=== PATIENT | male | born 1955 | race Caucasian/White ===

== ENCOUNTER 2017-07-01 01:48 | Observation (INO) | payer MEDICARE ==
[~2017-07-01] VITALS: Ht 167.6 cm; Wt 105.7 kg
[~2017-07-01 01:48] MED LIST: ASPIR-TRIN325 MG PO; ATIVAN0.5 MG PO; BACLOFEN10 MG PO; CARAFATE1 GM PO; CELEXA20 MG PO; FENTANYL1 EACH TD; FERROUS SULFAT325 MG PO; FOLIC ACID1 MG PO; HEMOCYTE PLUS1 EACH PO; HUMALOG100 UNIT/1 SQ; HUMALOG100 UNIT/3; IMDUR60 MG PO; ISOSORBIDE MONO60 MG PO; LASIX40 MG PO; LEVOTHYROXINE100 MCG PO; METOPROLOL TART25 MG PO; MUPIROCIN22 GM TOP; OMEPRAZOLE20 M1 PO; PLAVIX75 MG PO; RITALIN10 MG PO; SIMVASTATIN40 MG PO; STRATTERA80 MG PO; TRAZODONE HCL100 MG PO; ZETIA10 MG PO
[2017-07-01] MEDS ORDERED: DEXTROSE 5%/0.45% SOD CHL 1,000 ML IV ONE (02:00)
[2017-07-01 02:06] LABS: BASOPHILS # (AUTO) 0.1 (0.0-0.1); BASOPHILS % 0.5 % (0.0-1.0); EOSINOPHILS # (AUTO) 0.5 (0.0-0.4); EOSINOPHILS % 4.6 % (0.0-6.0); HEMATOCRIT 39.5 % (38.2-49.6); HEMOGLOBIN 13.3 g/dL (14.0-18.0); LYMPHOCYTES % 9.8 % (18.0-39.1); MEAN CORPUSCULAR HEMOGLOBIN 30.4 pg (28-32); MEAN CORPUSCULAR HGB CONC 33.7 g/dL (31-35); MEAN CORPUSCULAR VOLUME 90.2 fL (81-99); MONOCYTES % 9.9 % (4.4-11.3); NEUTROPHILS # (AUTO) 7.2 (2.1-6.9); NEUTROPHILS % 74.5 % (38.7-80.0); PLATELET COUNT 236 x10e3/uL (140-360); RED BLOOD COUNT 4.38 x10e6/uL (4.3-5.7); RED CELL DISTRIBUTION WIDTH 12.8 % (11.7-14.4)
[2017-07-01] MEDS ORDERED: PAROXETINE HCL20 MG PO (02:18)
[2017-07-01] MEDS ORDERED: LEVEMIR100 UNIT/1 SC ×2 (02:18)
[2017-07-01] MEDS ORDERED: LIPITOR20 MG PO (02:18)
[2017-07-01 02:27] LABS: ALANINE AMINOTRANSFERASE 22 IU/L (0-55); ALBUMIN 3.4 g/dL (3.5-5.0); ALBUMIN/GLOBULIN RATIO 0.9 (0.8-2.0); ALKALINE PHOSPHATASE 105 IU/L (40-150); AMYLASE 37 U/L (25-125); ANION GAP 13.5 mmol/L (8-16); BLOOD UREA NITROGEN 18 mg/dL (7-26); BUN/CREATININE RATIO 19 (6-25); CALCIUM 9.2 mg/dL (8.4-10.2); CARBON DIOXIDE 25 mmol/L (22-29); CHLORIDE 103 mmol/L (98-107); CREATINE KINASE 46 IU/L (30-200); CREATININE, SERUM 0.94 mg/dL (0.72-1.25); EST GLOMERULAR FILTRATION RATE > 60 ML/MIN (60-); GLUCOSE 123 mg/dL (74-118); LIPASE 6 U/L (8-78); POTASSIUM 3.5 mmol/L (3.5-5.1); SODIUM 138 mmol/L (136-145)
[2017-07-01 02:34] LABS: TROPONIN I 0.017 ng/mL (0-0.300)
[2017-07-01] MEDS ORDERED: ACETAMINOPHEN 325 MG TAB PO ONE (03:15)
[2017-07-01 03:20] LABS: BILIRUBIN,URINE NEGATIVE (NEGATIVE); KETONES,URINE NEGATIVE (NEGATIVE); LEUKOCYTE ESTERASE ,URINE NEGATIVE (NEGATIVE); NITRITE,URINE NEGATIVE (NEGATIVE); PROTEIN,URINE DIPSTICK NEGATIVE (NEGATIVE); URINE UROBILINOGEN 0.2 mg/dL (0.2 - 1)
[2017-07-01 03:21] LABS: CLARITY,URINE CLEAR (CLEAR); COLOR,URINE YELLOW (YELLOW)
[2017-07-01 03:29] LABS: BACTERIA,URINE RARE /HPF; EPITHELIAL CELLS,URINE RARE /LPF; MUCUS,URINE FEW (RARE); RBC,URINE 0-5 /HPF (0-5); WBC,URINE (MAN) 0-5 /HPF (0-5)
--- NOTE | 2017-07-01 04:05 | Diagnostic Imaging Report ---
EXAMINATION: Head CT without contrast. HISTORY:Altered mental status, left facial droop. COMPARISON:CT brain from 01/29/2014 and report of MRI brain and MRA head and neck from 01/30/2014 (images of prior MRI brain is not available for comparison at the time of interpretation). TECHNIQUE: Multidetector axial images were obtained from the foramen magnum to the vertex without contrast. The images were reconstructed using brain and bone algorithms. Thin section brain images were reformatted into coronal and sagittal planes. Intravenous contrast: None IMAGE QUALITY: Acceptable. FINDINGS: Skull/scalp: No abnormality Parenchyma: Cortical-based hypodensity in left supramarginal gyrus, angular gyrus, right occipital region, occipital lobe, posterior aspect of left superior temporal gyrus, left parietal deep white matter, left frontal operculum, left inferior frontal gyrus raises concern for possible evolving superimposed acute on chronic vascular insult in left MCA, BELT LINE FEEDER vascular territory and MCA/MARCUS watershed zone. Focal hypodensity in left frontal alcala radiata represents age indeterminate lacunar infarct. Nonspecific bilateral frontoparietal patchy white matter hypodensity are likely related to small vessel ischemic changes. No acute hemorrhage. Arteries: Atherosclerotic calcification in bilateral carotid siphon and V4 segment of the vertebral arteries. Dural sinuses: No abnormal density suggestive of thrombosis. Ventricles: Mild asymmetric prominence of left lateral ventricle represent exvacuodilatation. No hydrocephalus. Extra-axial spaces: No abnormal density. Brain volume: Normal for age. Craniocervical junction: No mass, Chiari malformation, or basilar invagination. Sella: No mass. Paranasal/mastoid sinuses: Mild mucosal thickening in bilateral maxillary and ethmoid sinuses. IMPRESSION: Multifocal cortical-based hypodensity in left MCA, BELT LINE FEEDER vascular territory and MCA/BELT LINE FEEDER watershed zone raises concern for possible evolving superimposed acute on chronic vascular insult. (Suboptimal evaluation due to lack of comparison with prior MRI brain images) if there is clinical concern for acute stroke follow-up with MRI brain without contrast. Age indeterminate lacunar infarct in left frontal alcala radiata. Mild supratentorial white matter microvascular ischemic changes Signed by: Dr. Belia Mcdonough M.D. on 07/01/2017 4:02 AM
--- NOTE | 2017-07-01 04:08 | Diagnostic Imaging Report ---
EXAM: CHEST SINGLE (PORTABLE), AP 1 view DATE: 07/01/2017 1:51 AM Time stamp on exam: 0236 hours INDICATION: Unresponsive, low blood sugar COMPARISON: None FINDINGS: LINES/TUBES: None LUNGS: No consolidations or edema. Simple infrahilar vascular crowding. PLEURA: No effusions or pneumothorax. HEART AND MEDIASTINUM: Normal size and contour. A loop recorder projects over the left chest. BONES AND SOFT TISSUES: No acute findings. Old right-sided rib fractures. IMPRESSION: No acute thoracic abnormality. Signed by: Dr. Mirna Leon M.D. on 07/01/2017 4:04 AM
[2017-07-01] MEDS ORDERED: DEXTROSE 50% SYRINGE 50 ML IV PRN (05:30)
[2017-07-01] MEDS ORDERED: ONDANSETRON HCL INJ 2 MG/ML VIAL IV PRN (05:30)
[2017-07-01] MEDS: LEVOTHYROXINE SODIUM 100 MCG TAB PO SCH (07:30)
[2017-07-01] MEDS: INSULIN REGULAR, HUMAN 100 UNIT/1 ML 3ML VIAL SQ SCH ×2 (08:55→11:30)
[2017-07-01] MEDS: BACLOFEN 10 MG TAB PO SCH ×3 (09:00→20:07)
[2017-07-01 14:07] VITALS: BP 121/76
[2017-07-01 14:22] VITALS: BP 121/76
[2017-07-01] MEDS: METOPROLOL TARTRATE 25 MG TAB PO SCH ×2 (14:22→16:47)
[2017-07-01] MEDS: CLOPIDOGREL BISULFATE 75 MG TAB PO SCH (14:22)
[2017-07-01] MEDS: PAROXETINE HCL 20 MG TAB PO SCH (14:22)
[2017-07-01] MEDS: FUROSEMIDE 40 MG TAB PO SCH (14:22)
[2017-07-01] MEDS: ASPIRIN 325 MG TAB EC PO SCH (14:22)
[2017-07-01 14:42] LABS: FREE T4 (FREE THYROXINE) 0.99 ng/dL (0.8-1.8); THYROID STIMULATING HORMONE 3.712 uIU/mL (0.350-4.940)
[2017-07-01 15:41] VITALS: BP 134/80
[2017-07-01] MEDS: INSULIN LISPRO 100 UNIT/1 ML 3ML VIAL SQ SCH ×2 (16:53→20:08)
--- NOTE | 2017-07-01 19:05 | Consultation ---
DATE OF CONSULTATION: July 01, 2017 ENDOCRINE CONSULTATION This is a patient of Dr. Yannick Wilson. Thank you very much for referring this patient. HISTORY OF PRESENT ILLNESS: This is a 61-year-old white gentleman who is very well known to me from his previous hospital admissions and the followup in my office. Patient is a known case of type 1 diabetes mellitus with multiple complications including severe diabetic sensorimotor neuropathy. Patient is status post coronary artery disease, congestive cardiac failure, and also status post CVA in the past. He takes about 9 units of Levemir at bedtime and Humalog, depending upon the blood sugar, about 4 to 8 with each meal. Patient also has history of hypothyroidism. The patient was doing relatively all right. According to him, his blood sugar was around 140 at suppertime. He took his Levemir at bedtime. He did not take a snack, and he landed up the hospital with altered mental status. Patient also is on other medications including isosorbide, Plavix, metoprolol, Lasix, and Synthroid 0.1 mg once daily. PHYSICAL EXAMINATION: GENERAL: Today the patient is alert, awake, a little bit apprehensive. He is moderately overweight. VITAL SIGNS: His heart rate is around 78. Blood pressure 120/80 mmHg. HEENT: Examination essentially unremarkable. Thyroid is palpable. Clinically he is near euthyroid. CHEST: Bilateral vesicular breathing. No rales heard. CARDIAC: Both 1st and 2nd heart sounds. There is no 3rd or 4th heart sound. Ejection sound grade 2/6. CLINICAL IMPRESSION: 1. Diabetes mellitus type 1. 2. Hypoglycemic episode. 3. Hypertension. 4. Coronary artery disease, status post cerebrovascular accident. PLAN: At this time is to put him on the Humalog insulin sliding scale. Discontinue the Orozco catheter. Will also do a hemoglobin A1c, thyroid function test. Patient may also need a CGMS-1 followup. Thanks for referring this patient. I will be following this patient with you. Job#: [id number] BATSHEVA
[2017-07-01 20:00] VITALS: BP 121/66
[2017-07-01] MEDS ORDERED: ATORVASTATIN 20 MG TAB PO SCH (21:00)
[2017-07-01] MEDS ORDERED: INSULIN DETEMIR 100 UNIT/ML PEN SQ SCH (21:00)
[2017-07-02] VITALS: BP 132/63
[2017-07-02 04:00] VITALS: BP 139/62
[2017-07-02 06:25] LABS: BASOPHILS # (AUTO) 0.1 (0.0-0.1); BASOPHILS % 0.5 % (0.0-1.0); EOSINOPHILS # (AUTO) 0.7 (0.0-0.4); HEMOGLOBIN 13.5 g/dL (14.0-18.0); LYMPHOCYTES # (AUTO) 1.7 (1.0-3.2); LYMPHOCYTES % 17.3 % (18.0-39.1); MEAN CORPUSCULAR HEMOGLOBIN 30.3 pg (28-32); MEAN CORPUSCULAR HGB CONC 33.8 g/dL (31-35); MEAN CORPUSCULAR VOLUME 89.9 fL (81-99); MONOCYTES # (AUTO) 1.3 (0.2-0.8); NEUTROPHILS # (AUTO) 6.2 (2.1-6.9); NEUTROPHILS % 61.5 % (38.7-80.0); PLATELET COUNT 240 x10e3/uL (140-360); RED BLOOD COUNT 4.45 x10e6/uL (4.3-5.7)
[2017-07-02 07:02] LABS: ALANINE AMINOTRANSFERASE 21 IU/L (0-55); ALBUMIN 3.3 g/dL (3.5-5.0); ALBUMIN/GLOBULIN RATIO 0.9 (0.8-2.0); ALKALINE PHOSPHATASE 97 IU/L (40-150); ANION GAP 13.5 mmol/L (8-16); BLOOD UREA NITROGEN 17 mg/dL (7-26); BUN/CREATININE RATIO 17 (6-25); CALCIUM 9.5 mg/dL (8.4-10.2); CARBON DIOXIDE 28 mmol/L (22-29); CHLORIDE 103 mmol/L (98-107); CREATININE, SERUM 0.98 mg/dL (0.72-1.25); EST GLOMERULAR FILTRATION RATE > 60 ML/MIN (60-); GLUCOSE 133 mg/dL (74-118); POTASSIUM 4.5 mmol/L (3.5-5.1); SODIUM 140 mmol/L (136-145)
[2017-07-02] MEDS: INSULIN LISPRO 100 UNIT/1 ML 3ML VIAL SQ SCH ×2 (07:30→12:32)
[2017-07-02 07:52] VITALS: BP 131/67
[2017-07-02] MEDS: LEVOTHYROXINE SODIUM 100 MCG TAB PO SCH (08:59)
[2017-07-02] MEDS: ASPIRIN 325 MG TAB EC PO SCH (08:59)
[2017-07-02] MEDS: CLOPIDOGREL BISULFATE 75 MG TAB PO SCH (09:00)
[2017-07-02] MEDS: METOPROLOL TARTRATE 25 MG TAB PO SCH (09:00)
[2017-07-02] MEDS: FUROSEMIDE 40 MG TAB PO SCH (09:00)
[2017-07-02] MEDS ORDERED: ISOSORBIDE MONONITRATE 30 MG TAB CR PO SCH (09:00)
[2017-07-02] MEDS: PAROXETINE HCL 20 MG TAB PO SCH (09:00)
[2017-07-02] MEDS: BACLOFEN 10 MG TAB PO SCH (09:00)
[2017-07-02 11:48] VITALS: BP 113/62
--- NOTE | 2017-07-02 15:06 | History and Physical ---
PLEASE VERIFY PATIENT IDENTITY. ADT MATCH NOT AVAILABLE. He is a 61-year-old male patient of mine presented to the emergency room with low sugar and patient was also hypothermic. His temperature was 95. HISTORY OF PRESENT ILLNESS: Mr. Tomas Fernandez is an insulin-requiring maturity-onset diabetes mellitus. Patient with multiple comorbidities with previous multiple strokes and lumbar osteomyelitis, abscess in the , chronic back pain, diabetes mellitus, hypertension, depression, obstructive sleep apnea, and hyperlipidemia. He presented to the emergency room. Patient accidentally took morning insulin and did not have a breakfast, anything to eat . Patient was having hypoglycemia with significantly low blood sugars. Patient was also confused and his temperature was also low. Patient has been evaluated in the emergency room and was subsequently admitted. PAST MEDICAL HISTORY: As per history of present illness. Patient has a known medical history of diabetes mellitus, hypertension, hyperlipidemia, multiple strokes, obstructive sleep apnea, and lumbar osteomyelitis and spinal abscess and surgery. PAST SURGICAL HISTORY: Spinal surgery for spinal osteomyelitis infection abscess. SOCIAL HISTORY: Denies smoking. Denies using alcohol. FAMILY HISTORY: Diabetes mellitus, hypertension, and hyperlipidemia. REVIEW OF SYSTEMS: Patient is feeling weak and dizzy. PHYSICAL EXAMINATION GENERAL: He is a middle-aged patient lying in bed, not in any acute distress. VITALS: Temperature 97, pulse rate 68, respiratory rate 20, and blood pressure 110/70. HEENT: Normocephalic and atraumatic. NECK: No JVD or lymphadenopathy. LUNGS: Bilateral equal and fair air entry. No rales, no rhonchi. HEART: S1 and S2 regular. Systolic murmur present. ABDOMEN: Soft. Bowel sounds are present. NEUROLOGIC: No new focal neurological deficit. ADMITTING IMPRESSION/DIAGNOSES 1. Hypoglycemia. 2. Hypothermia. 3. Type 2 diabetes mellitus, patient on insulin. 4. History of coronary artery disease. 5. History of lumbar spinal stenosis. 5. Multiple cerebrovascular accidents. PLAN: Patient will be admitted with the above diagnoses. Will monitor patient's blood sugars and neuro status. Patient's insulin will be held and D5 drips will be given. Will obtain endocrine consultation, Dr. Lake, to adjust the patient's insulin as patient is under the care of endocrine as outpatient. Diabetic education will be given. Job#: [id number] CF
--- NOTE | 2017-07-16 16:29 | Consultation ---
DATE OF CONSULTATION: NO DICTATION, LENGTH 1 SECOND. Job#: [id number]
== END 2017-07-02 14:56 | disposition home or self-care (01) ==
LOC: ER 01:48 → ERHOLD 05:46 → IMCU 13:39
PROVIDERS: ADMIT Internal Medicine; ATTEND Internal Medicine
DX: E10.649 Type 1 diabetes mellitus with hypoglycemia without coma (principal); I10 Essential (primary) hypertension; I25.118 Atherosclerotic heart disease of native coronary artery with other forms of angina pectoris; Z86.73 Personal history of transient ischemic attack (TIA), and cerebral infarction without residual deficits; E10.42 Type 1 diabetes mellitus with diabetic polyneuropathy; Z79.4 Long term (current) use of insulin; E03.9 Hypothyroidism, unspecified; G93.41 Metabolic encephalopathy
CPT/HCPCS: 36415 ×2; 70450; 71010; 80053 ×2; 81001; 82150; 82550; 82553; 82948 ×2; 83036; 83690; 84439; 84443; 84484; 85025 ×2; 97116; 97161; 99284; G0378 ×2; G8978; G8979; G8980

== ENCOUNTER 2017-11-30 16:20 | Observation (INO) | payer MEDICARE ==
[~2017-11-30] VITALS: Ht 167.6 cm; Wt 105.7 kg
[2017-11-30] MEDS: SODIUM CHLORIDE 0.9% 1000ML 1,000 ML IV SCH (03:50)
[~2017-11-30 16:20] MED LIST changes: +LEVEMIR100 UNIT/1 SC; +LIPITOR20 MG PO; +PAROXETINE HCL20 MG PO
--- OUTSIDE RECORDS SUMMARY | 2017-11-30 16:24 | XMS REPORT ---
Author [facility] Address Unknown Phone Unavailable Care Team Providers Care Drywall Mechanic Name Role Phone LOLITA CARTER Unavailable Unavailable Problems This patient has no known problems. Allergies, Adverse Reactions, Alerts This patient has no known allergies or adverse reactions. Medications This patient has no known medications. Results Test Description Test Time Test Comments Text Results Atomic Results Result Comments CT BRAIN WO [facility] [address] [place], [place] [address] Patient Name: SAKSHI GONZALEZ MR #: [id number] : 1955 Age/Sex: 61/M Req #: [id number] Adm Physician: Ordered by: LOLITA CARTER MD Report #: [id number] Location: ER Room/Bed: Procedure: [id number] CT/CT BRAIN WO Exam Date: 07/01/17 Exam Time: 0240 REPORT STATUS: Signed EXAMINATION: Head CT without contrast. HISTORY:Altered mental status, left facial droop. COMPARISON:CT brain from 01/29/2014 and report of MRI brain and MRA head and neck from 2013 (images of prior MRI brain is not available for comparison at the time of interpretation). TECHNIQUE: Multidetector axial images were obtained from the foramen magnum to the vertex without contrast. The images were reconstructed using brain and bone algorithms. Thin section brain images were reformatted into coronal and sagittal planes. Intravenous contrast: None IMAGE QUALITY: Acceptable. FINDINGS: Skull/scalp: No abnormality Parenchyma: Cortical-based hypodensity in left supramarginal gyrus, angular gyrus, right occipital region, occipital lobe, posterior aspect of left superior temporal gyrus, left parietal deep white matter, left frontal operculum, left inferior frontal gyrus raises concern for possible evolving superimposed acute on chronic vascular insult in left MCA, DONATION SPECIALIST vascular territory and MCA/MARCUS watershed zone. Focal hypodensity in left frontal alcala radiata represents age indeterminate lacunar infarct. Nonspecific bilateral frontoparietal patchy white matter hypodensity are likely related to small vessel ischemic changes. No acute hemorrhage. Arteries: Atherosclerotic calcification in bilateral carotid siphon and V4 segment of the vertebral arteries. Dural sinuses: No abnormal density suggestive of thrombosis. Ventricles: Mild asymmetric prominence of left lateral ventricle represent exvacuodilatation. No hydrocephalus. Extra- axial spaces: No abnormal density. Brain volume: Normal for age. Craniocervical junction: No mass, Chiari malformation, or basilar invagination. Sella: No mass. Paranasal/mastoid sinuses: Mild mucosal thickening in bilateral maxillary and ethmoid sinuses. IMPRESSION : Multifocal cortical-based hypodensity in left MCA, DONATION SPECIALIST vascular territory and MCA/DONATION SPECIALIST watershed zone raises concern for possible evolving superimposed acute on chronic vascular insult. (Suboptimal evaluation due to lack of comparison with prior MRI brain images) if there is clinical concern for acute stroke follow-up with MRI brain without contrast. Age indeterminate lacunar infarct in left frontal alcala radiata. Mild supratentorial white matter microvascular ischemic changes Signed by: Dr. Belia Mcdonough M.D. on 07/01/2017 4:02 AM Dictated By: BELIA MCDONOUGH MD 1 Transcribed By: BROOKE on 07/01/17401 COPY TO: LOLITA CARTER MD [facility] (PORTABLE) [place] [id number] Patient Name: SAKSHI GONZALEZ MR #: [id number] : 1955 Age/Sex: 61/M Req #: [id number] Adm Physician: Ordered by: LOLITA CARTER MD Report #: [id number] Location: Room/Bed: ___ Procedure: [id number] DX/CHEST SINGLE (PORTABLE) Exam Date: 07/01/17 Exam Time: 0240 REPORT STATUS: Signed EXAM: CHEST SINGLE (PORTABLE), AP 1 view DATE: 07/01/2017 1:51 AM Time stamp on exam: 0236 hours INDICATION: Unresponsive, low blood sugar COMPARISON: None FINDINGS: LINES/TUBES: None LUNGS: No consolidations or edema. Simple infrahilar vascular crowding. PLEURA: No effusions or pneumothorax. HEART AND MEDIASTINUM: Normal size and contour. A loop recorder projects over the left chest. BONES AND SOFT TISSUES: No acute findings. Old right -sided rib fractures. IMPRESSION: No acute thoracic abnormality. Signed by: Dr. Jeffery Leon M.D. on 07/01/2017 4:04 AM Dictated By: JEFFERY LEON MD 3 COPY TO: LOLITA CARTER MD
[2017-11-30] MEDS ORDERED: SODIUM CHLORIDE 0.9% 1000ML 1,000 ML IV STA (16:44)
[2017-11-30 16:55] LABS: BASOPHILS # (AUTO) 0.1 (0.0-0.1); BASOPHILS % 0.7 % (0.0-1.0); EOSINOPHILS # (AUTO) 0.4 (0.0-0.4); EOSINOPHILS % 4.4 % (0.0-6.0); HEMATOCRIT 39.3 % (38.2-49.6); HEMOGLOBIN 13.2 g/dL (14.0-18.0); LYMPHOCYTES % 11.4 % (18.0-39.1); MEAN CORPUSCULAR HEMOGLOBIN 30.4 pg (28-32); MEAN CORPUSCULAR HGB CONC 33.6 g/dL (31-35); MEAN CORPUSCULAR VOLUME 90.6 fL (81-99); MONOCYTES # (AUTO) 0.9 (0.2-0.8); MONOCYTES % 10.3 % (4.4-11.3); NEUTROPHILS # (AUTO) 6.3 (2.1-6.9); NEUTROPHILS % 72.9 % (38.7-80.0); PLATELET COUNT 225 x10e3/uL (140-360); RED BLOOD COUNT 4.34 x10e6/uL (4.3-5.7); RED CELL DISTRIBUTION WIDTH 12.5 % (11.7-14.4)
[2017-11-30 17:04] LABS: INR 1.05; PROTHROMBIN TIME 12.9 seconds (11.9-14.5)
[2017-11-30 17:05] LABS: PARTIAL THROMBOPLASTIN TIME 29.2 seconds (23.8-35.5)
[2017-11-30 17:14] LABS: ALANINE AMINOTRANSFERASE 13 IU/L (0-55); ALBUMIN 3.5 g/dL (3.5-5.0); ALKALINE PHOSPHATASE 103 IU/L (40-150); ANION GAP 14.2 mmol/L (8-16); BLOOD UREA NITROGEN 18 mg/dL (7-26); BUN/CREATININE RATIO 17 (6-25); CALCIUM 9.6 mg/dL (8.4-10.2); CARBON DIOXIDE 27 mmol/L (22-29); CHLORIDE 102 mmol/L (98-107); CHOLESTEROL 145 MD/DL (0-199); CREATINE KINASE 40 IU/L (30-200); CREATININE, SERUM 1.08 mg/dL (0.72-1.25); EST GLOMERULAR FILTRATION RATE > 60 ML/MIN (60-); GLUCOSE 222 mg/dL (74-118); HDL CHOLESTEROL 49 MG/DL (40-60); LDL CHOLESTEROL 81 MG/DL (60-130); MAGNESIUM 2.2 MG/DL (1.3-2.1); SODIUM 138 mmol/L (136-145); TRIGLYCERIDES 74 MG/DL (0-149)
[2017-11-30 17:16] LABS: POTASSIUM 5.2 mmol/L (3.5-5.1)
--- NOTE | 2017-11-30 17:24 | Diagnostic Imaging Report ---
History:Right weakness Comparison studies:CT brain, 07/01/2017 Technique: Axial images were obtained from the skull base to the vertex. Coronal and sagittal images reconstructed from the axial data. Intravenous contrast: None Findings: Scalp/skull: No abnormalities. Extra-axial spaces: No masses. No fluid collections. Brain sulci: Mildly prominent. Ventricles: Mild compensatory dilatation. No hydrocephalus. Parenchyma: Hypodensity involving the left MCA territory, specifically the left supramarginal gyrus subcortical white matter, the left parietal alcala radiata, perisylvian region, and the left posterior temporal lobe, representing old MCA territory infarcts. Hypodensity in the left lateral occipital lobe represents an old left BODY TECHNICIAN infarct. Chronic cortical infarct is also seen in the right inferior frontal gyrus. Sellar/suprasellar region: No abnormalities. Craniocervical junction: Patent foramen magnum. No Chiari one malformation. Incidental findings: Atherosclerotic calcifications in the carotid siphons . Impression: 1. No intracranial hemorrhage or intracranial mass. 2. Old left MCA and BODY TECHNICIAN territory infarcts. A superimposed acute on chronic infarct is not excluded, an MRI of brain may be obtained for further evaluation, if clinically indicated. Chronic findings: 1. Mild generalized volume loss. 2. Mild supratentorial white matter small vessel ischemic changes. Signed by: Dr. Sherie Goldberg M.D. on 11/30/2017 5:29 PM
--- NOTE | 2017-11-30 17:30 | Diagnostic Imaging Report ---
PROCEDURE: A single AP view of the chest. COMPARISON: Patients [facility], , CHEST SINGLE (PORTABLE), 07/01/2017, 2:36. INDICATIONS: RIGHT SIDE WEAKNESS FINDINGS: Lines/tubes: None. Lungs: The lungs are slightly hypoinflated.. There is no evidence of pneumonia or pulmonary edema. Pleura: There is no pleural effusion or pneumothorax. Heart and mediastinum: Cardiac silhouette is unremarkable. Mild central pulmonary vascular crowding due to mildly low lung volumes. Bones: No acute bony abnormality. IMPRESSION: 1. No acute cardiopulmonary abnormalities. Arnel Almazan M.D. Dictated by: Arnel Almazan M.D. on 11/30/2017 at 17:33 Electronically approved by: Arnel Almazan M.D. on 11/30/2017 at 17:33
[2017-11-30 17:33] LABS: THYROID STIMULATING HORMONE 1.345 uIU/mL (0.350-4.940)
[2017-11-30] MEDS ORDERED: CLOPIDOGREL BISULFATE 75 MG TAB PO ONE (18:15)
--- NOTE | 2017-11-30 19:49 | Diagnostic Imaging Report ---
History: Possible stroke, left-sided hemiparesis. Comparison studies:Head and neck MRA and brain MRI of 01/10/2014 and head CTs the 11/30/2017 and 07/01/2017. Technique: Axial images were obtained from the thoracic inlet. Multiplanar, MIP and volume rendered 3-D images reconstructed from the axial data. Intravenous contrast: 100 cc of Omnipaque 300. If present, stenosis the carotid bulbs is calculated utilizing the NASCET method which calculates the degree of stenosis with reference to the normal lumen of the carotid artery distal to the stenosis. Findings: Cervical CTA: Aortic arch and major vessels: Patent. No abnormalities. Common carotid arteries: Patent. No abnormalities. Carotid bulbs: Mild nonstenotic hard plaque on the right. No (0%) stenosis NASCET criteria bilaterally. Internal carotid arteries: Patent. No abnormalities. Vertebral arteries: Patent. No abnormalities. Intracranial CTA: Internal carotid arteries: Moderate calcified plaque in the bilateral paraophthalmic and cavernous segments which result in only mild stenosis in the right cavernous segment. No significant stenosis in the remaining internal carotid arteries. Anterior cerebral arteries: Patent. No abnormalities in the A1 and A2 segments. Middle cerebral arteries: Patent, no abnormalities in the M1 and proximal M2 segments. Vertebral arteries: Patent bilaterally with mild stenosis in the proximal right V4 segment due to hard plaque. Basilar artery: Patent. No abnormalities. Posterior cerebral arteries: Patent. No abnormalities. Anatomical variants: Acom: Patent. Pcoms: Patent on the right. Not well visualized, possibly hypoplastic on the left. Vertebral arteries: Left is slightly dominant. Incidental findings: * Nonspecific inflammatory changes in the paranasal sinuses with partially opacified left ethmoid air cells, partially opacified right middle ethmoid air cell and scattered mucosal thickening in the left maxillary and frontal sinus, sphenoid sinuses. * Degenerative changes in the cervical spine with multilevel arthrosis and mild to moderate foraminal stenosis on the left at C3-C4 due to uncovertebral and facet arthrosis. IMPRESSION: Cervical CTA: 1. No acute abnormalities. 2. No (0%) stenosis at the cervical carotid bulbs bilaterally. Mild nonstenotic calcified atherosclerosis at the right cervical carotid bulb. Intracranial CTA: 1. No acute abnormalities. 2. Calcified atherosclerosis in the carotid siphons with mild stenosis in the right cavernous ICA segment. 3. Mild stenosis due to calcified atherosclerosis in the proximal right vertebral artery. Please refer to head CT report of the same date for further characterization of intracranial findings. Signed by: Dr. Sam Collins M.D. on 11/30/2017 7:45 PM
[2017-11-30] MEDS ORDERED: ONDANSETRON HCL INJ 2 MG/ML VIAL IV PRN (20:00)
[2017-11-30] MEDS ORDERED: SODIUM CHLORIDE 0.9% 200 ML ONE (20:31)
[2017-11-30] MEDS ORDERED: IOPAMIDOL 370 MG/ML 200 ML INFUS..BTL INJ ONE (20:31)
[2017-11-30 20:50] VITALS: BP 136/65
[2017-11-30 23:48] VITALS: BP 136/65
[2017-12-01] VITALS (9 sets, daily range): BP systolic 114–148; BP diastolic 56–67
[2017-12-01] MEDS: SODIUM CHLORIDE 0.9% 1000ML 1,000 ML IV SCH ×3 (03:50→17:16)
[2017-12-01 06:42] LABS: BASOPHILS # (AUTO) 0.1 (0.0-0.1); BASOPHILS % 0.7 % (0.0-1.0); EOSINOPHILS # (AUTO) 0.5 (0.0-0.4); EOSINOPHILS % 4.6 % (0.0-6.0); HEMATOCRIT 41.5 % (38.2-49.6); HEMOGLOBIN 13.8 g/dL (14.0-18.0); LYMPHOCYTES # (AUTO) 1.3 (1.0-3.2); LYMPHOCYTES % 12.1 % (18.0-39.1); MEAN CORPUSCULAR HGB CONC 33.3 g/dL (31-35); MEAN CORPUSCULAR VOLUME 90.2 fL (81-99); MONOCYTES # (AUTO) 1.1 (0.2-0.8); MONOCYTES % 10.4 % (4.4-11.3); NEUTROPHILS # (AUTO) 7.5 (2.1-6.9); NEUTROPHILS % 71.7 % (38.7-80.0); PLATELET COUNT 224 x10e3/uL (140-360); RED CELL DISTRIBUTION WIDTH 12.6 % (11.7-14.4)
[2017-12-01 07:04] LABS: ALANINE AMINOTRANSFERASE 13 IU/L (0-55); ALBUMIN 3.5 g/dL (3.5-5.0); ALBUMIN/GLOBULIN RATIO 1.1 (0.8-2.0); ALKALINE PHOSPHATASE 84 IU/L (40-150); ANION GAP 14.3 mmol/L (8-16); BLOOD UREA NITROGEN 17 mg/dL (7-26); BUN/CREATININE RATIO 19 (6-25); CALCIUM 9.5 mg/dL (8.4-10.2); CARBON DIOXIDE 25 mmol/L (22-29); CHLORIDE 104 mmol/L (98-107); EST GLOMERULAR FILTRATION RATE > 60 ML/MIN (60-); GLUCOSE 141 mg/dL (74-118); POTASSIUM 4.3 mmol/L (3.5-5.1); SODIUM 139 mmol/L (136-145)
[2017-12-01] MEDS: ASPIRIN 325 MG TAB EC PO SCH (08:54)
[2017-12-01] MEDS ORDERED: ONDANSETRON HCL 4 MG ORAL DISINTEGRATING TAB PO PRN (10:00)
[2017-12-01 10:32] LABS: CHOL/HDL RATIO 3.2 (3.9-4.7)
[2017-12-01] MEDS ORDERED: ACETAMINOPHEN650 M1 PO (10:41)
[2017-12-01] MEDS ORDERED: NON-FORMULARY MEDICATION (Acetaminophen 650 MG) PO PRN (10:45)
[2017-12-01] MEDS ORDERED: BENADRYL25 M1 PO (10:45)
[2017-12-01] MEDS ORDERED: DIPHENHYDRAMINE HCL 25 MG CAP PO PRN (11:00)
[2017-12-01] MEDS ORDERED: DEXTROSE 50% SYRINGE 50 ML IV PRN ×2 (11:00→15:45)
[2017-12-01] MEDS: ISOSORBIDE MONONITRATE 30 MG TAB CR PO SCH (11:11)
[2017-12-01] MEDS: LEVOTHYROXINE SODIUM 100 MCG TAB PO SCH (11:11)
[2017-12-01] MEDS: CLOPIDOGREL BISULFATE 75 MG TAB PO SCH (11:11)
[2017-12-01] MEDS: FUROSEMIDE 40 MG TAB PO SCH (11:11)
[2017-12-01] MEDS: PAROXETINE HCL 20 MG TAB PO SCH (11:11)
--- NOTE | 2017-12-01 11:21 | History and Physical ---
HISTORY OF PRESENT ILLNESS: This 62-year-old male patient presented to the emergency room. He woke up yesterday at 4 p.m. with heaviness and weakness of the right upper and lower extremities. The patient had gone to sleep just 30 minutes prior without any weakness. When he woke up, he found right-sided heaviness. He called his mom, and they brought him to the emergency room yesterday. The patient denies having any dizziness, visual or speech impairment. No numbness or weakness. The patient denies any chest pain or palpitations. REVIEW OF SYSTEMS: Right-sided upper and lower extremity weakness, which improved significantly in the emergency room, but there is some left residual weakness. PAST MEDICAL HISTORY: Diabetes mellitus, hypertension, multiple strokes in the past. The patient has old left MCA and MESH WORKER territory infarct. The patient has possible new acute stroke. The patient had an epidural abscess, and the patient had osteomyelitis. PAST SURGICAL HISTORY: The patient has multiple surgical history. The patient had lumbar back surgery. The patient had coronary angioplasty with stent placement. Patient had left eye surgery and tonsillectomy. ALLERGIES: THE PATIENT IS ALLERGIC TO SULFA AND LISA INHIBITOR. SOCIAL HISTORY: Denies smoking. Denies using alcohol. FAMILY HISTORY: Diabetes mellitus, hypertension. PHYSICAL EXAMINATION GENERAL: He is a middle-aged male patient, very pleasant, not in any acute distress. VITAL SIGNS: Temperature 98, pulse rate 88, respirations 16, blood pressure 130/80 mmHg. HEENT: Examination is normal. Normocephalic, atraumatic. NECK: No JVD. No lymphadenopathy. LUNGS: Bilateral equal air entry. No rales or rhonchi. HEART: S1 and S2 regular. A systolic murmur is present. ABDOMEN: Soft. Bowel sounds are present. NEUROLOGIC: The patient has right-sided minimal weakness. The patient's speech is normal. EXTREMITIES: No pedal edema. ADMITTING IMPRESSION AND DIAGNOSES 1. Acute possible left middle cerebral artery territory stroke with previous stroke in the same area. 2. Diabetes mellitus. 3. Hypertension. 4. Previous coronary artery disease with angioplasty. 5. Chronic back pain with epidural osteomyelitis and abscess. The patient will be admitted with the above diagnoses. Neurology consultation with Dr. Bailon evaluating the patient. The patient will be treated with aspirin and Plavix. An MRI of the head will be done. Echo, carotid and cardiology evaluation will be done. Possible DIONICIO. Possibility of anticoagulation is explored. Case discussed with patient and neurology. Will obtain cardiology consultation with Dr. Redd. Job#: [id number] DEE
[2017-12-01] MEDS ORDERED: ACETAMINOPHEN 325 MG TAB PO PRN (11:30)
[2017-12-01] MEDS ORDERED: INSULIN LISPRO 100 UNIT/1 ML 3ML VIAL SQ SCH (11:30)
--- NOTE | 2017-12-01 14:01 | Consultation ---
DATE OF CONSULTATION: NEUROLOGY CONSULTATION HISTORY OF PRESENT ILLNESS: Mr. Fernandez is a 62-year-old, xldjb-tolr-oeffosge man with past medical history significant for hypertension, hyperlipidemia, diabetes mellitus type 2, coronary artery disease with myocardial infarction, and two prior strokes with residual deficits of cognitive impairment, weakness of both hands, and word-finding difficulties, who presented to the emergency center at [facility] on November 30, 2017, with right hemiparesis. On the day of admission, the patient awoke at approximately 3 PM with right hemiparesis, arm more affected than leg. Mr. Fernandez does not report a visual field cut or other disturbance, dysarthria, aphasia, facial droop, or numbness. He does report impairment of gait secondary to weakness in his right leg. He does not endorse dizziness or confusion. Mr. Fernandez's last known normal time is unknown. After noting his right hemiparesis, the patient immediately alerted his mother to his symptoms. His mother put him in the car and transported him to the emergency center at [facility] for further evaluation. Upon arrival in the emergency center, the patient was afebrile with a blood pressure of 154/74 mmHg and a pulse of 61 beats per minute. His neurological examination was significant for right hemiparesis, which significantly improved while in the emergency center. A CT of the brain without contrast was performed, but did not reveal recent large territorial ischemia or hemorrhage. Remote large territorial ischemia in the left middle cerebral artery and posterior cerebral artery distributions was seen on the CT of the brain without contrast. Mr. Fernandez was admitted to the hospital for further evaluation and treatment of his symptoms. As stated above, Mr. Fernandez's right hemiparesis significantly improved while in the emergency center. At present, the patient reports mild weakness of the right hand and arm. REVIEW OF SYSTEMS: Weakness of the right arm and leg, impairment of gait. Otherwise, the 12-point review of systems is negative. PAST MEDICAL HISTORY: Hypertension, hyperlipidemia, diabetes mellitus, coronary artery disease with prior myocardial infarction, asthma, history of depression, 2 prior strokes--the first in January 2015 and the second in January 2016. PAST SURGICAL HISTORY: Cardiac stents times 2, appendectomy, tonsillectomy, adenoidectomy, bilateral cataract surgery. PAST HOSPITALIZATIONS: Surgeries and procedures listed, stroke times two. FAMILY HISTORY: The patient's paternal grandparents are . Both from coronary artery disease with myocardial infarctions. The patient's maternal grandparents are . The maternal grandfather from bladder cancer. The maternal grandmother from coronary artery disease with myocardial infarction. Mr. Fernandez's father is . He had hypertension and coronary artery disease. He from parotid cancer, which metastasized to the lungs. The patient's mother is alive. She has coronary artery disease, symptomatic bradycardia status post pacemaker placement, and COPD. The patient has a sister who is alive. She has diabetes mellitus and arthritis. Mr. Fernandez has 2 boys who are alive and healthy. SOCIAL HISTORY: Patient is . He graduated high school and attended college for 2 years. Mr. Fernandez is retired at present. He previously worked with [employer]. 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 The patient does not endorse current or prior tobacco, alcohol, or recreational drug use. HOME MEDICATIONS 1. Aspirin 81 mg by mouth daily. 2. Plavix 75 mg by mouth daily. 3. Lipitor 40 mg by mouth at bedtime daily. 4. Baclofen 10 mg by mouth 3 times daily. 5. Lasix 40 mg by mouth daily. 6. Levemir 18 units subcutaneously every morning and 19 units subcutaneously every night. 7. Insulin lispro sliding scale. 8. Isosorbide mononitrate ER 60 mg by mouth daily. 9. Levothyroxine 100 mcg by mouth daily. 10. Metoprolol 25 mg by mouth twice daily. 11. Paroxetine 10 mg by mouth daily. 12. Zocor 40 mg by mouth daily. 13. Trazodone 100 mg by mouth daily. ALLERGIES: SULFA AND LISA INHIBITORS. LISA INHIBITORS CAUSE A COUGH. NO KNOWN FOOD ALLERGIES. NO KNOWN ALLERGIES TO LATEX. NO KNOWN ALLERGIES TO IODINE OR OTHER CONTRAST MATERIALS. PHYSICAL EXAMINATION VITAL SIGNS: Height 66 inches, weight 233 pounds, BMI 37.6 kg per meter squared. Blood pressure 148/67 mmHg, pulse 82 beats per minute, respiratory rate 18 breaths per minute, oxygen saturation 97% on room air. GENERAL: Patient is awake, alert, does not appear distressed. Obese. HEENT: Normocephalic, atraumatic. Pupils are surgical. Moist mucous membranes. NECK: Supple. No appreciable thyromegaly. No appreciable carotid bruits. CARDIOVASCULAR: S1, S2, regular rate and rhythm. No murmurs, rubs, or gallops. RESPIRATORY: Clear to auscultation bilaterally. No wheezes, rhonchi or rales. EXTREMITIES: Skin is warm and dry. No clubbing, cyanosis or edema. The posterior tibial and dorsalis pedis pulses are 1+ and symmetric. SKIN: Venous stasis ulcerations over the distal forelegs. NEUROLOGIC EXAMINATION MEMORY/ATTENTION: The patient is awake, alert and oriented to person, place, time and to situation. CRANIAL NERVES: Cranial nerve I: Not tested. Cranial nerves II, III, IV and : Pupils are surgical. Extraocular movements intact. No nystagmus. Cranial nerve V: Sensation to light touch and pinprick is intact in the bilateral V1 through V3 distributions. Strength of the temporalis and masseter muscles is within normal limits. Cranial VII: There is flattening of the right nasolabial fold. Facial movements are symmetric. Strength is within normal limits. Cranial nerve VIII: Hearing is intact to finger rub bilaterally. Cranial nerves IX and X: Soft palate elevates equally and symmetrically. Cranial nerve XI: Normal strength of the bilateral sternocleidomastoid and trapezius muscles. Cranial nerve XII: Tongue protrudes midline and moves symmetrically from side to side. STRENGTH: Bulk is normal, and strength is 5/5 in the bilateral deltoids, biceps, triceps, wrist flexors and extensors, finger flexors and extensors, intrinsic hand muscles, hip flexors, knee flexors and extensors, ankle dorsiflexion and plantar flexion, and intrinsic foot muscles. Tone is normal. DTRs: Deep tendon reflexes are 2+ and symmetric at the triceps, biceps, brachioradialis and patellas. Deep tendon reflexes are absent and symmetric at the Achilles. Plantar responses are flexor bilaterally. SENSATION: Sensation is intact to light touch and pinprick in both arms and both legs. CEREBELLAR: Ajorqr-joyr-hxhzzu and heel-santiago movements are intact without dysmetria or other impairment. GAIT: Deferred. SPEECH: Spontaneous speech is normal without appreciable dysarthria or aphasia. Repetition is intact. INVOLUNTARY MOVEMENTS: None. PRONATOR DRIFT: None. LABORATORY DATA: Sodium 139, potassium 4.3, chloride 104, carbon dioxide 25, anion gap 14.3, BUN 17, creatinine 0.90, estimated GFR greater than 60, SUJ-aa-pveiijftqc ratio 19, glucose 141, calcium 9.5, total bilirubin 0.6, AST 17, ALT 13, alkaline phosphatase 84, total protein 6.7, albumin 3.5, globulin 3.2. Bhsnnbp-ix-ezjuhxwe ratio 1.1. B-natriuretic peptide 261.5. Total cholesterol 145, triglycerides 74, LDL 81, HDL 49. TSH 1.345. CBC with differential reveals a white blood cell count of 10.41 with 71.7% neutrophils, 12.1% lymphocytes, 10.4% monocytes, 4.6% eosinophils, 0.7% basophils. Hemoglobin and hematocrit are 13.8 and 41.5, respectively. Platelet count is 224. PT 12.9, INR 1.05, PTT 29.2. DIAGNOSTIC STUDIES 1. Electrocardiogram, 11/30/2017: Normal sinus rhythm at 61 beats per minute. 2. CT of the brain without contrast, 11/30/2017: On my review, there is no evidence of recent large territorial ischemia, hemorrhage, mass or mass effect. Prior left MCA and WOOL MIXER territory infarcts are observed. There is mild diffuse cerebral atrophy, appropriate for age. Mild to moderate chronic small vessel ischemic disease. 3. Chest x-ray, 11/30/2017: No acute cardiopulmonary abnormalities. 4. CTA of the brain and neck, 11/30/2017: Calcified atherosclerosis in the carotid siphons with mild stenosis of the right cavernous internal carotid artery segments. Mild stenosis due to calcified atherosclerosis of the proximal right vertebral artery. No stenosis of the cervical carotid bulbs bilaterally. Mild nonstenotic calcified atherosclerosis at the right cervical carotid bulb. ASSESSMENT AND PLAN: Mr. Fernandez is a 62-year-old, efvpe-lyxe-tnlpshvk man with multiple vascular risk factors, who presented to the emergency center at [facility] on November 30, 2017, with transient right hemiparesis. At present, his neurological examination is nonfocal. His laboratory data and other diagnostic studies have been reviewed and are documented above. Mr. Fernandez's presenting symptoms are suspicious for a transient ischemic attack/stroke. Therefore, a complete stroke evaluation is recommended. RECOMMENDATIONS 1. Lipid panel and hemoglobin A1c. 2. MRI brain without contrast. 3. Vessel imaging has been performed. There is no evidence of hemodynamically significant stenosis in either the intra- or extracranial blood vessels. 4. Mr. Fernandez recently underwent a transthoracic echocardiogram. Those results will be obtained and reviewed. A consultation for the patient's community resource officer, Dr. Brendan Redd, will be placed for transesophageal echocardiogram. 5. Consider anticoagulation for stroke prophylaxis. Mr. Fernandez has experienced 3 or 4 strokes despite dual antiplatelet therapy. 6. Blood pressure may be normalized. Mr. Fernandez's goal blood pressure is less than 140/90 mmHg. 7. Lipid panel pending. Continue home medication. 8. Hemoglobin A1c pending. Tight glycemic control is recommended. 9. Speech and physical therapy consultations will be ordered. 10. GI prophylaxis: Pepcid 20 mg by mouth before meals twice daily. 11. DVT prophylaxis: Lovenox 40 mg subcutaneously daily. 12. Defer treatment of the remaining medical comorbidities to the primary and other services. Thank you for this consultation. I will continue to follow this patient while he remains in the hospital. Time spent was 50 minutes. Job#: [id number] MH NARDA
[2017-12-01] MEDS: BACLOFEN 10 MG TAB PO SCH ×2 (16:03→20:25)
[2017-12-01] MEDS: FAMOTIDINE 20 MG TAB PO SCH (16:03)
[2017-12-01] MEDS: INSULIN LISPRO 100 UNIT/1 ML 3ML VIAL SQ SCH ×2 (17:08→20:14)
[2017-12-01] MEDS: ENOXAPARIN SOD INJ 40 MG/0.4 ML SYR SC SCH (17:15)
[2017-12-01] MEDS: METOPROLOL TARTRATE 25 MG TAB PO SCH (17:15)
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
[2017-12-01] MEDS: TRAZODONE HCL 50 MG TAB PO SCH (20:25)
[2017-12-01] MEDS: ATORVASTATIN 40 MG TAB PO SCH (20:25)
[2017-12-01] MEDS ORDERED: INSULIN DETEMIR U SC SCH (21:00)
[2017-12-01] MEDS ORDERED: ATORVASTATIN 20 MG TAB PO SCH (21:00)
[2017-12-01] MEDS: INSULIN DETEMIR 100 UNIT/ML PEN SQ SCH (21:00)
--- NOTE | 2017-12-01 21:40 | Diagnostic Imaging Report ---
History: TIA/STROKE. Comparison studies: None Technique: Axial images were obtained from the skull base to the vertex. Coronal and sagittal reconstructions obtained from the axial data. Findings: Scalp/skull: No abnormalities. No fractures, blastic or lytic lesions. Extra-axial spaces: No masses. No fluid collections. Brain sulci: Appropriate for age. Ventricles: Normal in size and configuration. No hydrocephalus. Parenchyma: Single punctate focus of cortical diffusion restriction in the left inferior frontal gyrus. Left MARCUS-MCA and MCA-GROUP FITNESS ASSISTANT DEPARTMENT HEAD external border zone chronic infarcts. Left posterior alcala radiata chronic lacunar infarct. No masses, hemorrhage, acute cortical vascular insults. Sellar/suprasellar region: No abnormalities Craniocervical junction: Patent foramen magnum. No Chiari one malformation. IMPRESSION: 1. Single punctate focus of acute cortical infarct in the left inferior frontal gyrus. Otherwise no acute intracranial abnormality. 2. Left MARCUS-MCA and MCA-GROUP FITNESS ASSISTANT DEPARTMENT HEAD external border zone chronic infarcts. Findings discussed with Dr. Bailon at 6:00pm on 12/01/2017. Signed by: DR Raghu Teresa M.D. on 12/01/2017 9:36 PM
[2017-12-02] VITALS (8 sets, daily range): BP systolic 104–133; BP diastolic 54–98
[2017-12-02] MEDS: SODIUM CHLORIDE 0.9% 1000ML 1,000 ML IV SCH ×3 (03:50→19:50)
[2017-12-02] MEDS: LEVOTHYROXINE SODIUM 100 MCG TAB PO SCH (06:00)
[2017-12-02] MEDS: INSULIN LISPRO 100 UNIT/1 ML 3ML VIAL SQ SCH ×4 (07:30→20:28)
[2017-12-02] MEDS ORDERED: ISOSORBIDE MONONITRATE 60 MG PO SCH (09:00)
[2017-12-02] MEDS ORDERED: SIMVASTATIN 40 MG TAB PO SCH (09:00)
[2017-12-02] MEDS ORDERED: ASPIRIN 325 MG TAB EC PO SCH (09:00)
[2017-12-02] MEDS ORDERED: INSULIN DETEMIR U SC SCH (09:00)
[2017-12-02] MEDS: ASPIRIN 325 MG TAB EC PO SCH (09:52)
[2017-12-02] MEDS: FAMOTIDINE 20 MG TAB PO SCH ×2 (09:52→16:21)
[2017-12-02] MEDS: FUROSEMIDE 40 MG TAB PO SCH (09:52)
[2017-12-02] MEDS: BACLOFEN 10 MG TAB PO SCH ×3 (09:52→20:27)
[2017-12-02] MEDS: ISOSORBIDE MONONITRATE 30 MG TAB CR PO SCH (09:52)
[2017-12-02] MEDS: INSULIN DETEMIR 100 UNIT/ML PEN SQ SCH ×2 (09:53→20:28)
[2017-12-02] MEDS: METOPROLOL TARTRATE 25 MG TAB PO SCH ×2 (09:53→16:22)
[2017-12-02] MEDS: PAROXETINE HCL 20 MG TAB PO SCH (09:53)
[2017-12-02] MEDS: CLOPIDOGREL BISULFATE 75 MG TAB PO SCH (09:53)
--- NOTE | 2017-12-02 10:45 | Progress Note ---
DATE: December 02, 2017 CARDIOLOGY PROGRESS NOTE SUBJECTIVE: The patient denies chest pain or shortness of breath. OBJECTIVE VITALS: Temperature 96.8 degrees, pulse 57, respiratory rate 17, blood pressure 123/58, oxygen saturation 97%. GENERAL: Obese gentleman in no acute distress. Awake and alert. LUNGS: Clear to auscultation bilaterally. No wheezes or crackles. CARDIOVASCULAR: Normal rate. Regular rhythm. No murmur. Normal S1 and S2. ABDOMEN: Soft and nontender. EXTREMITIES: No edema. CARDIAC MEDICATIONS 1. Metoprolol tartrate 25 mg p.o. b.i.d. 2. Plavix 75 mg p.o. daily. 3. Isosorbide mononitrate 60 mg p.o. daily. 4. Furosemide 40 mg p.o. daily. 5. Aspirin 325 mg p.o. q.a.m. 6. Atorvastatin 40 mg p.o. at bedtime. 7. Levothyroxine 100 mcg p.o. daily. LABS: None today. Telemetry is normal sinus rhythm. MRI of brain with single punctate focus of acute cortical infarct in the left inferior frontal gyrus. Otherwise, no acute intracranial abnormality. Left MARCUS, MCA and HAND WELT BUTTER sternal borders with chronic infarcts. IMPRESSION 1. Acute cerebrovascular accident. 2. Coronary artery disease with prior stent placement. 3. Diabetes mellitus. 4. Hypertension. 5. Dyslipidemia. RECOMMENDATIONS: Patient had DIONICIO performed in 2014 after his previous stroke without evidence of intracardiac shunt on agitated saline contrast study. Atherosclerotic plaque was noted in the aorta. Continue aspirin and Plavix. Interrogation of the patient's ILR demonstrated atrial tachycardia episodes. Did not reveal any atrial fibrillation on review of the rhythm strips. Continue current cardiac medications. Risk factor modification. Monitor the patient on telemetry for any arrhythmias. Thank you for this consult. We will continue to follow. Job#: [id number] GROVER
[2017-12-02] MEDS: ENOXAPARIN SOD INJ 40 MG/0.4 ML SYR SC SCH (16:22)
[2017-12-02] MEDS: TRAZODONE HCL 50 MG TAB PO SCH (20:27)
[2017-12-02] MEDS: ATORVASTATIN 40 MG TAB PO SCH (20:27)
[2017-12-03] VITALS: BP 115/58
[2017-12-03] MEDS: SODIUM CHLORIDE 0.9% 1000ML 1,000 ML IV SCH (01:16)
[2017-12-03 04:00] VITALS: BP 121/58
[2017-12-03] MEDS: LEVOTHYROXINE SODIUM 100 MCG TAB PO SCH (05:25)
[2017-12-03] MEDS: INSULIN LISPRO 100 UNIT/1 ML 3ML VIAL SQ SCH ×2 (07:30→11:30)
[2017-12-03 08:00] VITALS: BP 134/62
[2017-12-03] MEDS: FAMOTIDINE 20 MG TAB PO SCH (08:00)
[2017-12-03] MEDS: ISOSORBIDE MONONITRATE 30 MG TAB CR PO SCH (08:30)
[2017-12-03] MEDS: PAROXETINE HCL 20 MG TAB PO SCH (08:30)
[2017-12-03] MEDS: INSULIN DETEMIR 100 UNIT/ML PEN SQ SCH (08:30)
[2017-12-03] MEDS: ASPIRIN 325 MG TAB EC PO SCH (08:30)
[2017-12-03] MEDS: CLOPIDOGREL BISULFATE 75 MG TAB PO SCH (08:30)
[2017-12-03] MEDS: BACLOFEN 10 MG TAB PO SCH (08:30)
[2017-12-03] MEDS: METOPROLOL TARTRATE 25 MG TAB PO SCH (08:30)
[2017-12-03] MEDS: FUROSEMIDE 40 MG TAB PO SCH (08:30)
--- NOTE | 2017-12-03 09:59 | Progress Note ---
DATE: CARDIOLOGY PROGRESS NOTE: SUBJECTIVE: Patient is without any complaints this morning. He denies any chest pain, shortness of breath or any new deficits. OBJECTIVE VITAL SIGNS: Temperature 96.4, pulse 54, respiratory rate 16, blood pressure 121/58, and oxygen saturation 96% on room air. GENERAL: Alert and oriented times 3. Resting comfortably in bed. Does not appear to be in any acute distress. LUNGS: Clear to auscultation throughout. No wheezing. No rhonchi or crackles. CARDIOVASCULAR: Normal rate and rhythm. Normal S1 and S2. No murmurs. No gallops. ABDOMEN: Rounded, soft and nontender. EXTREMITIES: Lower extremities with no edema. Two plus pedal pulses. CARDIOVASCULAR MEDICATIONS 1. Atorvastatin 40 mg p.o. at night. 2. Lovenox 40 mg subcutaneous daily. 3. Plavix 75 p.o. daily. 4. Isosorbide 50 mg p.o. daily. 5. Furosemide 40 p.o. daily. 6. Aspirin 325 p.o. daily. 7. Metoprolol 25 p.o. b.i.d. LABS: No new labs today. Telemetry is sinus rhythm. IMPRESSION 1. Acute cerebrovascular accident. 2. Coronary artery disease: Status post stent. 3. Diabetes mellitus. 4. Hypertension. 5. Dyslipidemia. RECOMMENDATIONS: Okay to discharge this patient from a cardiac standpoint. Patient had a DIONICIO performed in 2014 after his previous stroke with no evidence of intracardiac shunt. Arthritic plaque was noted in the aorta. Continue aspirin and Plavix. The patient has an LR for rhythm monitoring. Episodes of atrial tachycardia have been noted on previous interrogation. However, interrogation has not revealed atrial fibrillation or atrial flutter. Continue the above-listed cardiac medications. Risk factor modification also. Maintain on telemetry as long as the patient is inpatient. Once discharged, follow up with cardiology in 1-2 weeks. DICTATED BY KRISTAL EDWARDS NP Job#: [id number] [facility]
[2017-12-03] MEDS ORDERED: [UNRECOGNIZED DRUG - OTHER] PO (11:18)
--- NOTE | 2017-12-03 13:13 | Discharge Summary ---
He is a 62-year-old male patient presented with a sudden onset of right-sided weakness. ADMITTING IMPRESSION AND DIAGNOSES: Acute right anterior cerebral artery area cerebrovascular accident. Patient had improved significantly while patient came to the ER, so the t-PA was not indicated. Patient has a recurrent stroke on the right side anterior cerebellar and middle cerebellar artery territory. Patient has diabetes mellitus, hypertension, coronary artery disease, previous multiple strokes, and chronic back pain from epidural abscess. HOSPITAL COURSE SUMMARY: Patient was admitted with above diagnoses. Patient was treated with aspirin and Plavix. Neurology and cardiology evaluation was done. Dr. Bailon had evaluated the patient. A DIONICIO was explored, but patient had a DIONICIO done earlier, so patient was advised that DIONICIO will not do anymore input because patient had already DIONICIO done in the past. Patient was on aspirin and Plavix, so patient will be started on Eliquis 5 mg b.i.d. and patient was advised to stop Plavix and aspirin. Patient was advised to follow up as outpatient for recurrent stroke with me as well as neuro and cardiology. LALO GREER MD Job#: [id number] SUB
[2017-12-03] MEDS ORDERED: APIXABAN 5 MG TABLET PO SCH (17:00)
== END 2017-12-03 13:05 | disposition home or self-care (01) ==
LOC: ER 16:29 → ERHOLD 19:55 → MED/SURG3 20:35
PROVIDERS: ADMIT Internal Medicine; ATTEND Internal Medicine
DX: I63.512 Cerebral infarction due to unspecified occlusion or stenosis of left middle cerebral artery (principal); G46.0 Middle cerebral artery syndrome; G45.1 Carotid artery syndrome (hemispheric); E11.9 Type 2 diabetes mellitus without complications; I10 Essential (primary) hypertension; I25.10 Atherosclerotic heart disease of native coronary artery without angina pectoris; Z95.5 Presence of coronary angioplasty implant and graft; G89.29 Other chronic pain; Z88.2 Allergy status to sulfonamides; Z88.8 Allergy status to other drugs, medicaments and biological substances; I69.319 Unspecified symptoms and signs involving cognitive functions following cerebral infarction; I69.398 Other sequelae of cerebral infarction; I25.2 Old myocardial infarction; E78.5 Hyperlipidemia, unspecified
CPT/HCPCS: 36415 ×4; 70450; 70496; 70498; 70551; 71045; 80053 ×2; 80061 ×2; 82550; 82553; 82948 ×4; 83036; 83735; 83880; 84443; 84484; 85025 ×2; 85610; 85730; 92507 ×2; 92523; 93005; 97116 ×3; 97161; 97530; 99284; G0378 ×4; J1650 ×2; J7030 ×2; J7050; Q9967

== ENCOUNTER 2019-02-02 02:01 | Emergency (ER) | payer MEDICARE ==
[~2019-02-02] VITALS: Ht 167.6 cm; Wt 105.7 kg
[~2019-02-02 02:01] MED LIST changes: +ACETAMINOPHEN650 M1 PO; +BENADRYL25 M1 PO; +[UNRECOGNIZED DRUG - OTHER] PO
[2019-02-02] MEDS ORDERED: DEXTROSE 50% SYRINGE 50 ML IV STA (03:20)
[2019-02-02] MEDS ORDERED: DEXTROSE 50% SYRINGE 50 ML IV ONE (03:24)
[2019-02-02 04:11] LABS: BASOPHILS % 0.3 % (0.0-1.0); EOSINOPHILS # (AUTO) 0.2 (0.0-0.4); EOSINOPHILS % 1.9 % (0.0-6.0); HEMATOCRIT 40.8 % (38.2-49.6); HEMOGLOBIN 13.4 g/dL (14.0-18.0); LYMPHOCYTES # (AUTO) 0.8 (1.0-3.2); LYMPHOCYTES % 6.5 % (18.0-39.1); MEAN CORPUSCULAR HEMOGLOBIN 29.8 pg (28-32); MEAN CORPUSCULAR HGB CONC 32.8 g/dL (31-35); MEAN CORPUSCULAR VOLUME 90.9 fL (81-99); MONOCYTES # (AUTO) 0.9 (0.2-0.8); MONOCYTES % 7.6 % (4.4-11.3); NEUTROPHILS # (AUTO) 9.6 (2.1-6.9); NEUTROPHILS % 82.9 % (38.7-80.0); PLATELET COUNT 284 x10e3/uL (140-360); RED BLOOD COUNT 4.49 x10e6/uL (4.3-5.7); RED CELL DISTRIBUTION WIDTH 13.5 % (11.7-14.4)
[2019-02-02 04:18] LABS: ALANINE AMINOTRANSFERASE 17 IU/L (0-55); ALBUMIN 3.4 g/dL (3.5-5.0); ALKALINE PHOSPHATASE 74 IU/L (40-150); ANION GAP 14.1 mmol/L (8-16); BLOOD UREA NITROGEN 19 mg/dL (7-26); BUN/CREATININE RATIO 22 (6-25); CALCIUM 9.1 mg/dL (8.4-10.2); CARBON DIOXIDE 23 mmol/L (22-29); CHLORIDE 103 mmol/L (98-107); CREATININE, SERUM 0.87 mg/dL (0.72-1.25); EST GLOMERULAR FILTRATION RATE > 60 ML/MIN (60-); GLUCOSE 69 mg/dL (74-118); POTASSIUM 4.1 mmol/L (3.5-5.1); SODIUM 136 mmol/L (136-145)
[2019-02-02 04:34] LABS: BILIRUBIN,URINE NEGATIVE (NEGATIVE); CLARITY,URINE CLEAR (CLEAR); COLOR,URINE YELLOW (YELLOW); KETONES,URINE NEGATIVE (NEGATIVE); LEUKOCYTE ESTERASE ,URINE NEGATIVE (NEGATIVE); NITRITE,URINE NEGATIVE (NEGATIVE); PROTEIN,URINE DIPSTICK NEGATIVE (NEGATIVE); URINE UROBILINOGEN 0.2 mg/dL (0.2 - 1)
[2019-02-02 04:47] VITALS: BP 127/70
[2019-02-02 04:48] LABS: BACTERIA,URINE RARE /HPF; EPITHELIAL CELLS,URINE FEW /LPF; RBC,URINE 0-5 /HPF (0-5); WBC,URINE (MAN) 0-5 /HPF (0-5)
== END 2019-02-02 05:00 | disposition home or self-care (01) ==
LOC: ER 02:01
DX: E11.649 Type 2 diabetes mellitus with hypoglycemia without coma (principal)
CPT/HCPCS: 36415; 80053; 81001; 85025; 99284; J7799

== ENCOUNTER 2019-02-15 21:07 | Emergency (ER) | payer MEDICARE ==
[~2019-02-15] VITALS: Ht 167.6 cm; Wt 105.7 kg
--- NOTE | 2019-02-15 21:28 | NUR ---
Pt awake and alert at this time, given turkey sandwich with pudding at this time.
[2019-02-15 21:45] LABS: BASOPHILS # (AUTO) 0.1 (0.0-0.1); BASOPHILS % 0.4 % (0.0-1.0); EOSINOPHILS # (AUTO) 0.4 (0.0-0.4); HEMATOCRIT 40.3 % (38.2-49.6); HEMOGLOBIN 13.3 g/dL (14.0-18.0); LYMPHOCYTES # (AUTO) 0.9 (1.0-3.2); MONOCYTES # (AUTO) 1.1 (0.2-0.8); MONOCYTES % 8.7 % (4.4-11.3); NEUTROPHILS # (AUTO) 9.9 (2.1-6.9); NEUTROPHILS % 80.2 % (38.7-80.0); PLATELET COUNT 237 x10e3/uL (140-360); RED BLOOD COUNT 4.43 x10e6/uL (4.3-5.7); RED CELL DISTRIBUTION WIDTH 13.5 % (11.7-14.4)
--- NOTE | 2019-02-15 21:56 | NUR ---
Informed Dr. Donald of glucose level of 121 at this time.
[2019-02-15 21:57] LABS: ALANINE AMINOTRANSFERASE 13 IU/L (0-55); ALBUMIN 3.6 g/dL (3.5-5.0); ALKALINE PHOSPHATASE 75 IU/L (40-150); BLOOD UREA NITROGEN 14 mg/dL (7-26); BUN/CREATININE RATIO 16 (6-25); CALCIUM 9.6 mg/dL (8.4-10.2); CARBON DIOXIDE 23 mmol/L (22-29); CHLORIDE 101 mmol/L (98-107); CREATINE KINASE 37 IU/L (30-200); CREATININE, SERUM 0.87 mg/dL (0.72-1.25); EST GLOMERULAR FILTRATION RATE > 60 ML/MIN (60-); GLUCOSE 104 mg/dL (74-118); SODIUM 136 mmol/L (136-145)
[2019-02-16 00:04] VITALS: BP 145/87
== END 2019-02-16 00:30 | disposition home or self-care (01) ==
LOC: ER 21:07
DX: E11.649 Type 2 diabetes mellitus with hypoglycemia without coma (principal); R41.82 Altered mental status, unspecified; I25.2 Old myocardial infarction; Z86.73 Personal history of transient ischemic attack (TIA), and cerebral infarction without residual deficits
CPT/HCPCS: 36415; 80053; 82550; 82553; 82948; 84484; 85025; 93005; 99284

== ENCOUNTER 2019-03-18 03:07 | Emergency (ER) | payer MEDICARE ==
[~2019-03-18] VITALS: Ht 167.6 cm; Wt 105.7 kg
--- NOTE | 2019-03-18 03:16 | NUR ---
TOD 0316 CALLED BY ER PHYSICIAN, DR. REESE ABEL
--- NOTE | 2019-03-18 03:45 | NUR ---
[facility] notified by , Oliva Paz RN
--- NOTE | 2019-03-18 04:08 | NUR ---
ME CALLED AT 0408 BY ADEBAYO, EDNA CANELA RN
--- NOTE | 2019-03-18 06:25 | NUR ---
Family remains at bedside, awaiting release by medical office assistant
[2019-03-18] MEDS ORDERED: SODIUM BICARBONATE 8.4% 50 ML VIAL ONE (13:53)
[2019-03-18] MEDS ORDERED: EPINEPHRINE HCL SYRINGE ONE (13:53)
== END 2019-03-18 11:06 | disposition expired ==
LOC: ER 03:07
DX: I46.9 Cardiac arrest, cause unspecified (principal); I10 Essential (primary) hypertension; E11.9 Type 2 diabetes mellitus without complications; I25.10 Atherosclerotic heart disease of native coronary artery without angina pectoris; I25.2 Old myocardial infarction; Z86.73 Personal history of transient ischemic attack (TIA), and cerebral infarction without residual deficits
CPT/HCPCS: 92950; 99285; J0171